=== PATIENT | female | born 1970 | race Hispanic/Latino ===

== ENCOUNTER 2017-05-28 16:50 | Emergency (ER) | payer OTHER ==
[~2017-05-28] VITALS: Ht 165.1 cm; Wt 63.6 kg
[2017-05-28 17:05] VITALS: BP 162/106; PULSE 62; RESP 20; O2SAT 99
--- NOTE | 2017-05-28 18:15 | ED.REPORT ---
HPI-Dyspnea / Wheezing Date of Service May 28, 2017 ED Provider: Laverne Wu History of Present Illness: 46-year-old female here for upper respiratory symptoms and back pain. Sent from the urgent care. She has had cold symptoms like cough and sore throat for one week. Her upper back started hurting intermittently with cough a few days ago and at this point it is constant, cough or not. The pain feels deeper not muscular. Denies any chest pain but she does have some chest congestion. Runny nose is minimal this time and the cough is fairly minor. She traveled home from [place] arriving in the [facility] on May 18. History of blood clots. Has a history of lupus otherwise healthy. Has some dyspnea with exertion. Nursing Notes Stated Complaint: BACK PAIN Chief Complaint: FLU/Cold Symptoms Nursing Notes Reviewed: Yes Allergies: Coded Allergies: Sulfa (Sulfonamide Antibiotics) (Verified Allergy, Unknown, joint stiffness, fever, 05/28/17) Scheduled Hydroxychloroquine Sulfate (Plaquenil) 200 Mg Tablet 200 MG PO DAILY Prednisone (PredniSONE) 2.5 Mg Tab 5 MG PO DAILY General Time Seen by MD: 17:59 Chief Complaint Cough Back pain, uri Hx Obtained From: Patient Arrived By: Walk-in Onset Occurred: 1 week ago Symptom Duration: Intermittent Location: : Back Severity: Current: Mild Severity: Maximum: Moderate Recent Healthcare: Recent doctor visit Similar Sx Previous: No Risk Factors Risk Notes: Recent travel Past Medical History Past Medical History Notes: Lupus Review of Systems Constitutional: Denies: Chills, Fatigue, Fever Ears / Nose / Throat: Reports: Sore throat, Throat pain Respiratory: Reports: Dyspnea on exertion, Pleuritic pain, Prod cough, green Cardiovascular: Denies: Chest pain, Edema Musculoskeletal: Reports: Back pain, Thoracic pain, Denies: Extremity pain, Extremity swelling Complete sys rev & neg: except as marked. Physical Exam Initial Vital Signs Vital Signs (First) Date Time Temp Pulse Resp B/P Pulse Ox O2 Delivery O2 Flow Rate FiO2 05/28/17 17:05 37.1 62 20 162/106 99 Room Air Initial VS: Reviewed, Vital signs abnormal General/Constitutional: Awake, Alert Neck: Atraumatic, Supple, No meningismus, Full range of motion, No swelling, Non-tender, No masses Respiratory / Chest: Breath sounds NL, Breath sounds = bilat, No respiratory distress, No rales, No rhonchi, No wheezing, No retractions, No stridor Cardiovascular: Heart rate NL, Regular rhythm, Heart sounds NL, Peripheral circulation NL ENT: Airway patent, Mucous membranes moist, Pharynx NL Abdomen: Soft, Non-tender, No guarding, No rebound Back: Inspection NL, Non-tender, No CVA tenderness Nontender neck, thoracic or lumbar spine Lower Extremity / Pelvis / MS: Inspection NL, No swelling, Non-tender, No erythema, No deformity, Neurologic intact, No edema Tenderness erythema or swelling Interpretation & Diagnostics Interpretation & Diagnostics: INDICATIONS: cough TECHNIQUE: 2 views of the chest were acquired. COMPARISON: [facility], , CHEST 2VW, 02/08/2012, 15:37. FINDINGS: Surgical changes and devices: None. Lungs and pleura: No pleural effusions or pneumothorax. Lungs are clear. Mediastinum: Mediastinal contours are normal. Heart size is normal. Bones and chest wall: No suspicious bony abnormalities. Soft tissues appear unremarkable. IMPRESSION: No acute process. Lab Results Interpretation Result Diagram: 05/28/17 1845 05/28/17 1845 Test 05/28/17 18:45 05/28/17 19:09 White Blood Count 6.8th/mm3 (3.8-10.1) Red Blood Count 4.48mil/mm3 (3.90-5.20) Hemoglobin 13.7g/dL (12.0-15.6) Hematocrit 40.5% (35.0-46.0) Mean Corpuscular Volume 90.4fL (81-100) Mean Corpuscular Hemoglobin 30.6pg (27.0-35.0) Mean Corpuscular Hemoglobin Concent 33.8% (32.0-37.0) Red Cell Distribution Width 13.1% (12.3-15.4) Platelet Count 242bil/L (150-400) Neutrophils (%) (Auto) 89.5% (40-74) Lymphocytes (%) (Auto) 7.5% (14-46) Monocytes (%) (Auto) 2.2% (4-12) Eosinophils (%) (Auto) 0.4% (0-5) Basophils (%) (Auto) 0.1% (0-3) D-Dimer 0.85mg/L FEU (<0.50) Sodium Level 140mEq/L (134-144) Potassium Level 4.2mEq/L (3.5-5.2) Chloride Level 107mEq/L (97-108) Carbon Dioxide Level 20mmol/L (18-29) Blood Urea Nitrogen 13mg/dL (6-24) Creatinine 0.71mg/dL (0.57-1.00) Estimat Glomerular Filtration Rate 126mL/min (>59) Glucose Level 120mg/dL (60-99) Calcium Level 8.9mg/dL (8.5-10.1) Total Bilirubin 0.3mg/dL (0.0-1.2) Aspartate Amino Transf (AST/SGOT) 26U/L (0-50) Alanine Aminotransferase (ALT/SGPT) 34U/L (0-32) Alkaline Phosphatase 69U/L (25-150) Total Protein 7.6g/dL (6.4-8.4) Albumin 4.0g/dL (3.4-5.0) Hold Wyatt Top Tube Received (Received) Hold Urine Received (Received) CT Chest Interpretation PROCEDURE: CT ANGIO CHEST PULMONARY EMBOLISM ([id number]) INDICATIONS: chest/back pain +ddimer TECHNIQUE: After the administration of intravenous contrast, 2 mm thick sections acquired from the pulmonary apices to the posterior costophrenic angles. 3-dimensional maximum intensity projection (MIP) coronal and sagittal reformats were then acquired through the thorax. For radiation dose reduction, the following was used: automated exposure control, adjustment of mA and/or kV according to patient size. COMPARISON: None. FINDINGS: Image quality: Excellent. Pulmonary arteries: Pulmonary arteries are normal in size, and demonstrate no intraluminal filling defects to suggest central pulmonary embolism. Lungs and pleura: Lungs are clear. No pleural effusions or pneumothorax. Central and peripheral airways are patent. Mediastinum: Heart size is normal, without pericardial effusion. No mediastinal or hilar adenopathy. Thoracic aorta is normal in caliber and enhancement. Esophagus is normal in caliber, without hiatal hernia. Bones and chest wall: No suspicious bony lesions. Ribs and thoracic spine appear intact throughout. Thyroid gland is within normal limits. No axillary or supraclavicular adenopathy. Abdomen: Visualized upper abdominal solid organs appear normal in the early arterial phase of enhancement. IMPRESSION: 1. No acute process. No pulmonary embolus. Re-Eval/Medical Decision Med Decision/Clinical Course 137/85, HR 70 at 1945 Patient reported to have the allergic reaction to the contrast. Benadryl and Solu-Medrol ordered. Patient feeling shaky and tremulous after given Solu-Medrol and Benadryl. Will monitor patient and discharge when patient feels ready Discharge & Departure Shift Change Sign-Out Laboratory Evaluation: Lab evaluation discussed Imaging Studies: Imaging discussed Procedures: Results discussed Response to Therapy: Improved Impression: Primary Impression: Upper respiratory infection URI type: unspecified viral URI Qualified Code: J06.9 - Acute upper respiratory infection, unspecified Additional Impression: Thoracic back sprain Encounter type: initial encounter Qualified Code: S23.9XXA - Sprain of unspecified parts of thorax, initial encounter Disposition: Home Discharge Condition All VS Reviewed: Yes Condition: Stable Patient Instructions: Upper Respiratory Infection (ED) Additional Instructions: There is no evidence of pulmonary embolism found in our exam today. You do have an upper respiratory infection caused by a viral illness. Treat as you see fit taking ibuprofen for body aches or fever. [id number] cough suppressants as needed. Follow up if he gets fevers, worsening chest pain or any worsening pain at all. Otherwise follow-up with your PCP early this week. Referrals: Maddy Ren MD (PCP) EDSupervising Provider for APC: Kendall Phillips Linnea K ARNP May 28, 2017 18:15
--- NOTE | 2017-05-28 18:46 | DRSVH ---
PROCEDURE: X-RAY CHEST, TWO VIEWS ([id number]) INDICATIONS: cough TECHNIQUE: 2 views of the chest were acquired. COMPARISON: [facility], , CHEST 2VW, 02/08/2012, 15:37. FINDINGS: Surgical changes and devices: None. Lungs and pleura: No pleural effusions or pneumothorax. Lungs are clear. Mediastinum: Mediastinal contours are normal. Heart size is normal. Bones and chest wall: No suspicious bony abnormalities. Soft tissues appear unremarkable. IMPRESSION: No acute process. Dictated by: Josh Louis M.D. on 05/28/2017 at 18:44 Approved by: Josh Louis M.D. on 05/28/2017 at 18:44
[2017-05-28 19:01] LABS: BASOPHILS % (AUTO) 0.1 % (0-3); EOSINOPHILS % (AUTO) 0.4 % (0-5); MONOCYTES % (AUTO) 2.2 % (4-12); Mean Corpuscular Hemoglobin 30.6 pg (27.0-35.0); Mean Corpuscular Volume 90.4 fL (81-100); NEUTROPHILS % (AUTO) 89.5 % (40-74); Platelet Count 242 bil/L (150-400)
[2017-05-28] MEDS ORDERED: HYDR200T PO (19:01)
[2017-05-28] MEDS ORDERED: PRD2.5T PO (19:01)
[2017-05-28 20:00] VITALS: BP 140/73; PULSE 70; RESP 14; O2SAT 100
[2017-05-28] MEDS ORDERED: MethylprednisoLONE Sodium Succinate 62.5 mg/mL 2 mL Inj IVPUSH ONE (20:35)
--- NOTE | 2017-05-28 20:51 | DRSVH ---
PROCEDURE: CT ANGIO CHEST PULMONARY EMBOLISM ([id number]) INDICATIONS: chest/back pain +ddimer TECHNIQUE: After the administration of intravenous contrast, 2 mm thick sections acquired from the pulmonary api bushra to the posterior costophrenic angles. 3-dimensional maximum intensity projection (MIP) coronal a nd sagittal reformats were then acquired through the thorax. For radiation dose reduction, the follo wing was used: automated exposure control, adjustment of mA and/or kV according to patient size. COMPARISON: None. FINDINGS: Image quality: Excellent. Pulmonary arteries: Pulmonary arteries are normal in size, and demonstrate no intraluminal filling d efects to suggest central pulmonary embolism. Lungs and pleura: Lungs are clear. No pleural effusions or pneumothorax. Central and peripheral ai rways are patent. Mediastinum: Heart size is normal, without pericardial effusion. No mediastinal or hilar adenopathy . Thoracic aorta is normal in caliber and enhancement. Esophagus is normal in caliber, without hiat al hernia. Bones and chest wall: No suspicious bony lesions. Ribs and thoracic spine appear intact throughout. Thyroid gland is within normal limits. No axillary or supraclavicular adenopathy. Abdomen: Visualized upper abdominal solid organs appear normal in the early arterial phase of enhanc ement. IMPRESSION: 1. No acute process. No pulmonary embolus. Dictated by: Josh Louis M.D. on 05/28/2017 at 20:48 Approved by: Josh Louis M.D. on 05/28/2017 at 20:50
[2017-05-28 21:10] VITALS: BP 142/85; PULSE 72; RESP 16; O2SAT 100
== END 2017-05-28 21:21 | disposition home or self-care (01) ==
LOC: SED 16:50
DX: S23.8XXA Sprain of other specified parts of thorax, initial encounter (principal); X50.9XXA Other and unspecified overexertion or strenuous movements or postures, initial encounter; Y93.89 Activity, other specified; Y92.89 Other specified places as the place of occurrence of the external cause; Y99.8 Other external cause status; J06.9 Acute upper respiratory infection, unspecified; R07.81 Pleurodynia; M32.9 Systemic lupus erythematosus, unspecified; Z88.2 Allergy status to sulfonamides
CPT/HCPCS: 36415; 71020; 71275; 80053; 81025; 85025; 85378; 96374; 96375; 99285; J1200; J2930; Q9967